=== PATIENT | female | born 1975 | race Caucasian/White ===

== ENCOUNTER → 2021-03-10 | Outpatient (CLI) | payer BC, OTHER ==
[~2021-03-10] MED LIST: ACETAMINOPHEN500 MG PO; DOCUSATE SODIU100 MG PO; FLOVENT DISKUS50 MCG INH; HYDROCODON-ACE1 EAC2 PO; IBU800 MG PO; NEURONTIN600 MG PO; NORTRIPTYLINE H25 MG PO; VALIUM 10 MG TA10 MG PO; ZESTRIL20 MG PO
[2021-03-10 13:38] LABS: HEMOGLOBIN 14.3 gm/dl (12.3-15.3); RED BLOOD COUNT 4.58 M/UL (4.00-5.10); WHITE BLOOD COUNT 6.5 K/UL (4.5-11.0)
[2021-03-10 13:59] LABS: BUN/CREATININE RATIO 15 (0-10)
== END ==
LOC: OPSV2 03-02 12:00 → EDSTATUS 13:00 → OPSV2 13:00
PROVIDERS: Orthopaedic Surgery
DX: Z01.818 Encounter for other preprocedural examination (principal); M43.16 Spondylolisthesis, lumbar region; M54.16 Radiculopathy, lumbar region
CPT/HCPCS: 36415; 71046; 80048; 81001; 85025; 85610; 85730; 87081; 93005

== ENCOUNTER → 2021-03-13 | Outpatient (CLI) | payer BC, OTHER ==
[2021-03-13 08:08] LABS: BUN/CREATININE RATIO 20 (0-10)
== END ==
LOC: LAB 06:58
PROVIDERS: Orthopaedic Surgery
DX: Z01.812 Encounter for preprocedural laboratory examination (principal)
CPT/HCPCS: 36415; 80048; 84702; 86850; 86900; 86901

== ENCOUNTER 2021-03-14 06:11 | Inpatient (IN) | payer BC, OTHER ==
[~2021-03-14] VITALS: Ht 177.8 cm; Wt 131.1 kg
[2021-03-14] MEDS ORDERED: FLOVENT DISKUS50 MCG INH (06:51)
[2021-03-14] MEDS ORDERED: NEURONTIN600 MG PO (06:52)
[2021-03-14] MEDS ORDERED: IBU800 MG PO (06:52)
[2021-03-14] MEDS ORDERED: HYDROCODON-ACE1 EAC2 PO (06:54)
[2021-03-14] MEDS ORDERED: NORTRIPTYLINE H25 MG PO (06:55)
[2021-03-14] MEDS ORDERED: ZESTRIL20 MG PO (06:55)
[2021-03-14 11:38] LABS: HEMOGLOBIN 12.8 gm/dl (12.3-15.3); RED BLOOD COUNT 4.09 M/UL (4.00-5.10); WHITE BLOOD COUNT 8.5 K/UL (4.5-11.0)
[2021-03-14 14:34] LABS: HEMOGLOBIN 12.4 gm/dl (12.3-15.3)
[2021-03-14 14:38] LABS: WHITE BLOOD COUNT 11.1 K/UL (4.5-11.0)
[2021-03-14 17:10] LABS: HEMOGLOBIN 12.2 gm/dl (12.3-15.3); RED BLOOD COUNT 4.01 M/UL (4.00-5.10)
[2021-03-14 17:27] LABS: WHITE BLOOD COUNT 14.1 K/UL (4.5-11.0)
--- NOTE | 2021-03-14 20:20 | NUR ---
ART LINE REMOVED FROM L WRIST AT 1945 ARTERIAL PRESSURE WAS READING INACCURATELY WAS UNABLE TO DRAW BACK BLOOD PRESSURE WAS APPLIED PT TOLERATED WELL
[2021-03-15 05:34] LABS: HEMOGLOBIN 11.1 gm/dl (12.3-15.3); RED BLOOD COUNT 3.69 M/UL (4.00-5.10); WHITE BLOOD COUNT 15.8 K/UL (4.5-11.0)
[2021-03-15 05:51] LABS: BUN/CREATININE RATIO 23 (0-10)
[2021-03-15 12:29] LABS: HEMOGLOBIN 10.1 gm/dl (12.3-15.3)
[2021-03-16 10:18] LABS: HEMOGLOBIN 8.6 gm/dl (12.3-15.3)
[2021-03-16 10:31] LABS: RED BLOOD COUNT 2.78 M/UL (4.00-5.10); WHITE BLOOD COUNT 9.4 K/UL (4.5-11.0)
[2021-03-16 10:48] LABS: BUN/CREATININE RATIO 19 (0-10)
[2021-03-17 07:40] LABS: HEMOGLOBIN 8.1 gm/dl (12.3-15.3); RED BLOOD COUNT 2.62 M/UL (4.00-5.10); WHITE BLOOD COUNT 7.6 K/UL (4.5-11.0)
[2021-03-17 07:51] LABS: BUN/CREATININE RATIO 19 (0-10)
[2021-03-18 07:11] LABS: HEMOGLOBIN 8.5 gm/dl (12.3-15.3); RED BLOOD COUNT 2.78 M/UL (4.00-5.10); WHITE BLOOD COUNT 7.1 K/UL (4.5-11.0)
[2021-03-18 07:25] LABS: BUN/CREATININE RATIO 16 (0-10)
[2021-03-19 09:35] LABS: HEMOGLOBIN 10.3 gm/dl (12.3-15.3); WHITE BLOOD COUNT 7.5 K/UL (4.5-11.0)
[2021-03-19 09:37] LABS: RED BLOOD COUNT 3.38 M/UL (4.00-5.10)
[2021-03-19 10:01] LABS: BUN/CREATININE RATIO 17 (0-10)
[2021-03-20] MEDS ORDERED: DOCUSATE SODIU100 MG PO (09:27)
[2021-03-20] MEDS ORDERED: ACETAMINOPHEN500 MG PO (09:27)
[2021-03-20] MEDS ORDERED: VALIUM 10 MG TA10 MG PO ×2 (11:32→12:07)
== END 2021-03-20 13:00 | disposition home health service (06) | DRG 454 ==
LOC: OR 06:11 → CCU 17:26 → M/S 03-18 16:52
PROVIDERS: Family Medicine; Nurse Practitioner Family; Physician Assistant; ADMIT Orthopaedic Surgery
PROC: 0SG1071 Fusion of 2 or more Lumbar Vertebral Joints with Autologous Tissue Substitute, Posterior Approach, Posterior Column, Open Approach (ICD-10-PCS; 2021-03-14)
PROC: 0ST20ZZ Resection of Lumbar Vertebral Disc, Open Approach (ICD-10-PCS; 2021-03-14)
PROC: 01NB0ZZ Release Lumbar Nerve, Open Approach (ICD-10-PCS; 2021-03-14)
PROC: 0SG10AJ Fusion of 2 or more Lumbar Vertebral Joints with Interbody Fusion Device, Posterior Approach, Anterior Column, Open Approach (ICD-10-PCS; principal; 2021-03-14 07:30)
DX: M43.16 Spondylolisthesis, lumbar region (principal); Z68.41 Body mass index [BMI] 40.0-44.9, adult; D62 Acute posthemorrhagic anemia; M48.061 Spinal stenosis, lumbar region without neurogenic claudication; M47.26 Other spondylosis with radiculopathy, lumbar region; D64.9 Anemia, unspecified; I10 Essential (primary) hypertension; Z20.822 Contact with and (suspected) exposure to COVID-19; R00.0 Tachycardia, unspecified; E66.01 Morbid (severe) obesity due to excess calories; I95.9 Hypotension, unspecified; D72.828 Other elevated white blood cell count; R53.1 Weakness; M19.90 Unspecified osteoarthritis, unspecified site; G89.18 Other acute postprocedural pain; G62.89 Other specified polyneuropathies; Z87.891 Personal history of nicotine dependence; Z79.899 Other long term (current) drug therapy; Z80.3 Family history of malignant neoplasm of breast; Z90.49 Acquired absence of other specified parts of digestive tract
CPT/HCPCS: 36415; 4500.00; 70450; 72100; 72110; 72125; 76000; 80048; 84439; 84443; 84702; 85014; 85018; 85025; 85027; 85652; 86140; 86850; 86900; 86901; 93005; 97116-GP-CQ; 97162; 97166; 97530; 97530-GP-CQ; 97535; C1713; C1762; C1781; J0690; J1040; J1100; J1170; J1650; J2001; J2250; J2370; J2405; J2550; J2704; J3010; J3370; J7040; J7120